=== PATIENT | female | born 1960 | race Two or more races ===

== ENCOUNTER 2022-03-03 16:45 | Inpatient (IN) | payer MEDICAID ==
[~2022-03-03] VITALS: Ht 152.4 cm; Wt 56.5 kg
[2022-03-03 17:36] LABS: Basophils # (auto) 0 10 ^3/uL (0-0.2); Basophils % (auto) 0.6 % (0.0-2.0); Eosinophils # (auto) 0 10 ^3/uL (0-0.8); Mean Corpuscular Hemoglobin 34.5 pg (28.0-32.0); Red Blood Cells 2.94 10^6/uL (4.0-5.20)
[2022-03-03 17:37] LABS: Eosinophils % (auto) 0.5 % (0.0-7.0); Hematocrit 29.5 % (36.0-46.0); Hemoglobin 10.1 g/dL (12.2-16.2); Lymphocytes # (auto) 0.9 10 ^3/uL (0.4-5.4); Lymphocytes % (auto) 12.6 % (10.0-50.0); Mean Corpuscular Hgb Conc. 34.4 g/dL (32.0-36.0); Mean Corpuscular Volume 100.3 fL (80.0-100.0); Monocytes # (auto) 0.4 10 ^3/uL (0-1.3); Monocytes % (auto) 5.5 % (0.0-12.0); Neutrophils % (auto) 80.8 % (37.0-80.0); Red Cell Distribution Width 13.9 % (11.8-14.3); White Blood Cell 7.4 10^3/uL (4.4-10.8)
[2022-03-03 18:01] LABS: INR 0.92 (0.9-1.15); Partial Thromboplastin Time 26.5 sec (24.6-33.4)
[2022-03-03 18:02] LABS: Albumin 2.6 g/dL (3.4-5.0); Anion Gap 19 (5-15); Blood Alcohol < 3.0 mg/dL (0-5); Blood Urea Nitrogen 8 mg/dL (7-18); Carbon Dioxide 13 mmol/L (21-32); Chloride 77 mmol/L (98-107); Glucose 123 mg/dL (74-106); Potassium 4.2 mmol/L (3.5-5.1)
[2022-03-03 18:03] LABS: Acetaminophen 4.7 ug/mL (10-30); Salicylate < 1.7 mg/dL (2.8-20.0)
[2022-03-03 18:05] LABS: Alanine Aminotransferase 21 U/L (13-56); Alkaline Phosphatase 90 U/L (45-117); Aspartate Aminotransferase 34 U/L (15-37); Bilirubin, Total 0.6 mg/dL (0.2-1.0); GFR African American 53 mL/min; GFR Non-African American 43 mL/min; Total Protein 5.6 g/dL (6.4-8.2)
[2022-03-03 18:40] LABS: Sodium 109 mmol/L (136-145)
[2022-03-03] MEDS ORDERED: levETIRAcetam 500 MG/5ML INJ IV ONE (19:21)
[2022-03-03] MEDS ORDERED: MORPHINE SULFATE INJ 2 MG/ml SYRG IV PRN (19:30)
[2022-03-03] MEDS ORDERED: NITROGLYCERIN 0.4 MG SL TAB SL PRN (19:30)
[2022-03-03] MEDS ORDERED: SODIUM CHL 3% 500 ML IV ONE (19:30)
[2022-03-03] MEDS ORDERED: MIDAZOLAM HCL 2MG/2ML 2ml VIAL (1mg/ml) IV PRN ×2 (20:15)
[2022-03-03 20:30] LABS: Cholesterol 215 mg/dL (< 200)
[2022-03-03 20:32] LABS: HDL Cholesterol 144 mg/dL (40-59); LDL Cholesterol 65 mg/dL (< 100); Triglycerides 79 mg/dL (< 150)
[2022-03-03 20:54] LABS: Amphetamine Screen, Urine NEGATIVE (NEGATIVE); Barbiturate Scree,Urine NEGATIVE (NEGATIVE); Benzodiazephine Screen, Urine NEGATIVE (NEGATIVE); Cocaine Screen, Urine NEGATIVE (NEGATIVE); Opiate Scree,Urine NEGATIVE (NEGATIVE); Phencyclidine Screen, Urine NEGATIVE (NEGATIVE)
[2022-03-03 21:10] LABS: Cannabinoid Screen, Urine POSITIVE (NEGATIVE)
[2022-03-03 21:15] LABS: BUN/Creatinine Ratio 6.5; Calcium 7.5 mg/dL (8.5-10.1); Potassium 3.6 mmol/L (3.5-5.1)
[2022-03-03 21:24] LABS: Folate (Folic Acid) 13.48 ng/mL (5.38-24)
[2022-03-03 22:39] LABS: Calcium 7.8 mg/dL (8.5-10.1); Potassium 3.6 mmol/L (3.5-5.1)
[2022-03-03 22:41] LABS: BUN/Creatinine Ratio 7.5
[2022-03-04 02:18] LABS: BUN/Creatinine Ratio 8.9; Calcium 7.9 mg/dL (8.5-10.1); Potassium 3.3 mmol/L (3.5-5.1)
[2022-03-04 04:37] LABS: Hemoglobin 11.5 g/dL (12.2-16.2)
[2022-03-04 04:41] LABS: Basophils # (auto) 0 10 ^3/uL (0-0.2); Basophils % (auto) 0.4 % (0.0-2.0); Eosinophils # (auto) 0 10 ^3/uL (0-0.8); Eosinophils % (auto) 0.7 % (0.0-7.0); Lymphocytes # (auto) 0.9 10 ^3/uL (0.4-5.4); Mean Corpuscular Hemoglobin 36.5 pg (28.0-32.0); Mean Corpuscular Volume 101.3 fL (80.0-100.0); Monocytes # (auto) 0.4 10 ^3/uL (0-1.3); Neutrophils # (auto) 5.1 10 ^3/uL (1.6-8.6); Neutrophils % (auto) 78.9 % (37.0-80.0); Nucleated Red Blood Cells % 0.1 %; Red Blood Cells 3.16 10^6/uL (4.0-5.20); Red Cell Distribution Width 13.5 % (11.8-14.3); White Blood Cell 6.4 10^3/uL (4.4-10.8)
[2022-03-04 04:54] LABS: BUN/Creatinine Ratio 7.8; Calcium 8.2 mg/dL (8.5-10.1); Potassium 3.3 mmol/L (3.5-5.1)
[2022-03-04] MEDS ORDERED: D5W/SOD CHL 0.45% 1,000 ML IV SCH (09:45)
[2022-03-04 10:47] LABS: Calcium 8.7 mg/dL (8.5-10.1); Magnesium 1.8 mg/dL (1.6-2.6); Phosphorus 3.6 mg/dL (2.5-4.90); Potassium 3.4 mmol/L (3.5-5.1)
[2022-03-04] MEDS: SOD CHL 0.9%/ KCL 20MEQ 1,000 ML IV SCH (11:42)
[2022-03-04] MEDS: FOLIC ACID 1 MG, MULTIPLE VITAMIN 10 ML, MAGNESIUM SULF SDV 50% 8 MEQ, THIAMINE INJ 100... INJ SCH ×5 (12:37)
[2022-03-04 13:46] LABS: Protein, Urine 13.9 mg/dL (0.0-11.9)
[2022-03-04 20:27] LABS: BUN/Creatinine Ratio 10.7; Calcium 7.7 mg/dL (8.5-10.1); Potassium 3.1 mmol/L (3.5-5.1)
[2022-03-04 23:55] VITALS: BP 113/72
[2022-03-05 01:08] LABS: BUN/Creatinine Ratio 11.1; Calcium 7.6 mg/dL (8.5-10.1); Potassium 3.2 mmol/L (3.5-5.1)
[2022-03-05] MEDS: SOD CHL 0.9%/ KCL 20MEQ 1,000 ML IV SCH ×2 (01:27→11:30)
[2022-03-05 04:28] LABS: BUN/Creatinine Ratio 8.2; Calcium 7.5 mg/dL (8.5-10.1); Potassium 3.6 mmol/L (3.5-5.1)
[2022-03-05 05:00] VITALS: BP 99/60
[2022-03-05 05:43] LABS: BUN/Creatinine Ratio 11.4; Calcium 7.3 mg/dL (8.5-10.1); Potassium 3.3 mmol/L (3.5-5.1)
[2022-03-05 09:10] VITALS: BP 117/79
[2022-03-05] MEDS ORDERED: POTASSIUM EFFERVESENT TAB 25 MEQ PO ONE (12:00)
[2022-03-05 12:17] LABS: Calcium 7.8 mg/dL (8.5-10.1); Potassium 4.5 mmol/L (3.5-5.1)
[2022-03-05 12:51] VITALS: BP 128/63
[2022-03-05 13:25] LABS: Hepatitis C Antibody Negative (Negative)
[2022-03-05] MEDS: FOLIC ACID 1 MG, MULTIPLE VITAMIN 10 ML, MAGNESIUM SULF SDV 50% 8 MEQ, THIAMINE INJ 100... INJ SCH ×10 (13:44→16:26)
[2022-03-05] MEDS ORDERED: ACETAMINOPHEN 325 MG TAB PO PRN (16:45)
[2022-03-05 16:56] VITALS: BP 90/53
[2022-03-05 18:36] LABS: BUN/Creatinine Ratio 6.8; Calcium 7.9 mg/dL (8.5-10.1); Potassium 3.6 mmol/L (3.5-5.1)
[2022-03-05 20:00] VITALS: BP 95/60
[2022-03-05 22:00] VITALS: BP 95/60
[2022-03-06 05:00] VITALS: BP 97/53
[2022-03-06 07:45] VITALS: BP 105/74
[2022-03-06 09:00] VITALS: BP 105/74
[2022-03-06 13:00] VITALS: BP 101/68
[2022-03-06] MEDS ORDERED: FOLIC ACID 1 MG, MULTIPLE VITAMIN 10 ML, MAGNESIUM SULF SDV 50% 8 MEQ, THIAMINE INJ 100... INJ SCH ×5 (13:34)
[2022-03-06 15:14] VITALS: BP 105/74
[2022-03-06] MEDS: SOD CHL 0.9%/ KCL 20MEQ 1,000 ML IV SCH (15:20)
[2022-03-06 16:55] VITALS: BP 112/73
== END 2022-03-06 17:53 | disposition home or self-care (01) | DRG 426 ==
LOC: EDBD 16:45 → ER 16:45 → TELE 19:27 → TELE-WESTW 03-04 22:30
PROVIDERS: ADMIT Registered Nurse; ATTEND Hospitalist
DX: E87.1 Hypo-osmolality and hyponatremia (principal); G93.41 Metabolic encephalopathy; E43 Unspecified severe protein-calorie malnutrition; E87.2 Acidosis; N17.9 Acute kidney failure, unspecified; G40.901 Epilepsy, unspecified, not intractable, with status epilepticus; E86.0 Dehydration; D53.9 Nutritional anemia, unspecified; S00.83XA Contusion of other part of head, initial encounter; E87.8 Other disorders of electrolyte and fluid balance, not elsewhere classified; E88.09 Other disorders of plasma-protein metabolism, not elsewhere classified; D75.89 Other specified diseases of blood and blood-forming organs; E87.6 Hypokalemia; Z20.822 Contact with and (suspected) exposure to COVID-19; F10.239 Alcohol dependence with withdrawal, unspecified; S00.31XA Abrasion of nose, initial encounter; S40.812A Abrasion of left upper arm, initial encounter; S40.811A Abrasion of right upper arm, initial encounter; W18.39XA Other fall on same level, initial encounter; Y93.89 Activity, other specified; Y92.098 Other place in other non-institutional residence as the place of occurrence of the external cause; Y99.8 Other external cause status
CPT/HCPCS: 36415; 70450; 70486; 70551; 71045; 72125; 80048; 80053; 80061; 80307; 80320; 80329; 82140; 82306; 82570; 82607; 82746; 83036; 83735; 83930; 83935; 83970; 84100; 84156; 84300; 85025; 85610; 85730; 86803; 87340; 93306; 93886; 95819; 96365; 97116; 97163; 97530; G0378; J7060

== ENCOUNTER 2022-03-10 19:11 | Emergency (ER) | payer MEDICAID ==
[~2022-03-10] VITALS: Ht 160 cm; Wt 63.6 kg
[2022-03-10] MEDS ORDERED: LIDOCAINE 1% HCL (LOCAL ANESTH.) INJ 20ML MDV ID ONE (22:45)
[2022-03-10] MEDS ORDERED: TETANUS-DIPTH-ACEL PERTUSSIS 0.5ML SYR Tdap IM ONE (22:45)
[2022-03-10 23:45] VITALS: BP 119/92
== END 2022-03-11 07:56 | disposition home or self-care (01) ==
LOC: ER 19:11 → EDBD 19:11 → ER 03-11 07:56
DX: S00.83XA Contusion of other part of head, initial encounter (principal); W19.XXXA Unspecified fall, initial encounter; Y93.89 Activity, other specified; Y92.89 Other specified places as the place of occurrence of the external cause; Y99.8 Other external cause status
CPT/HCPCS: 70450; 70486; 72125; 90471; 90715